=== PATIENT | male | born 1960 | race Caucasian/White ===

== ENCOUNTER 2023-10-24 07:30 | Emergency (ER) | payer OTHER ==
[~2023-10-24] VITALS: Ht 170.1 cm; Wt 68.0 kg
[~2023-10-24 07:30] MED LIST: ASPIRIN81 M1 PO; COZAAR25 MG PO; FENOGLIDE40 MG PO; HYDR25T PO; JANUVIA100 MG PO; LEXAPRO5 MG PO; LIPITOR10 MG PO; NATURE'S BLEND400 I1 PO; PERCOCET 325 MG1 TA7 PO; PRILOSEC10 MG PO; QUETIAPINE FUMA50 M1 PO; SEROQUEL25 MG PO; TENORMIN100 MG PO; XANAX0.25 MG PO; XANAX2 M1 PO
[2023-10-24 08:53] LABS: BILIRUBIN Negative (Negative); BLOOD Negative (Negative); CLARITY Clear (Clear); COLOR Yellow (Yellow); GLUCOSE Negative (Negative); KETONE Negative (Negative); LEUKO ESTERASE Negative (Negative); NITRITE Negative (Negative); SPECIFIC GRAVITY 1.015 (1.001-1.030)
[2023-10-24 09:09] LABS: RBC 0-2 rbc/hpf (0-2); WBC 0-2 wbc/hpf (0-5)
== END 2023-10-24 09:51 | disposition home or self-care (01) ==
LOC: ED 07:30
PROVIDERS: Emergency Medicine
DX: T75.4XXA Electrocution, initial encounter (principal); F32.A Depression, unspecified; F41.9 Anxiety disorder, unspecified; I10 Essential (primary) hypertension; E78.00 Pure hypercholesterolemia, unspecified; E11.9 Type 2 diabetes mellitus without complications; K21.9 Gastro-esophageal reflux disease without esophagitis; Z88.8 Allergy status to other drugs, medicaments and biological substances; Z88.2 Allergy status to sulfonamides; Z98.890 Other specified postprocedural states; Z90.89 Acquired absence of other organs